=== PATIENT | female | born 1995 | race Caucasian/White ===

== ENCOUNTER 2017-05-29 13:13 | Outpatient (CLI) | payer OTHER ==
--- NOTE | 2017-05-29 16:18 | ULT ---
RENAL ULTRASOUND: History: Urinary tract infection. Date: 05-29-17 Technique: Multiple longitudinal and transverse images of the kidneys and bladder obtained using a mu ltihertz curvilinear transducer. FINDINGS: Real-time and color flow images demonstrate both kidneys to be somewhat small. Right kidney measures 8.2 and left kidney 8.9 cm from pole to pole. No evidence of renal parenchymal masses or lesions seen . No evidence of hydronephrosis is seen. No evidence or obvious parenchymal scarring is seen. The blaze dder is unremarkable. Bladder has a 3D measurement of 8.8 x 7.0 x 9.6 cm with pre void bladder volume of approximately 308 ml. IMPRESSION: Normal renal ultrasound. POS: [facility]
== END 2017-05-29 13:14 | disposition home or self-care (01) ==
LOC: ULT 13:13
PROVIDERS: ATTEND Urology
DX: N39.0 Urinary tract infection, site not specified (principal)
CPT/HCPCS: 76770